=== PATIENT | male | born 1945 | race Two or more races ===

== ENCOUNTER → 2016-10-31 | Outpatient (CLI) | payer MEDICARE ==
[~2016-10-31] MED LIST: APIX5TAB PO; ASPI81CH43 PO; DONETAB5 PO; GAB300C PO; KEP500T PO; LEV250T PO; LISI-646 PO; METO50TA7 PO; NIFE30TA76 PO
[2016-10-31 13:03] LABS: Basophils # (auto) 0.1 uL; Basophils % (auto) 0.7 % (0.0-2.0); Eosinophils # (auto) 0.3 uL; Hematocrit 42.6 % (41.0-53.0); Hemoglobin 13.7 g/dL (13.5-17.5); Lymphocytes # (auto) 2.3 uL; Lymphocytes % (auto) 25.3 % (10.0-50.0); Mean Corpuscular Hemoglobin 29.1 pg (28.0-32.0); Mean Corpuscular Hgb Conc. 32.2 g/dL (32.0-36.0); Mean Corpuscular Volume 90.2 fL (80.0-100.0); Mean Platelet Volume 10.4 fL (7.4-10.4); Monocytes # (auto) 0.7 uL; Monocytes % (auto) 7.5 % (0.0-12.0); Neutrophils # (auto) 5.7 uL; Neutrophils % (auto) 63.5 % (37.0-80.0); Platelet Count (auto) 397 10^3/uL (140-450); Red Cell Distribution Width 14.5 % (11.6-16.0)
[2016-10-31 14:53] LABS: Albumin 3.9 g/dL (3.4-5.0); BUN/Creatinine Ratio 8.9; Bilirubin, Total 0.6 mg/dL (0.2-1.0); Calcium 8.9 mg/dL (8.5-10.1); Total Protein 8.8 g/dL (6.4-8.2)
[2016-10-31 15:17] LABS: Potassium 2.4 mmol/L (3.5-5.1)
[2016-10-31 15:28] LABS: Cholesterol 173 mg/dL (<200); HDL Cholesterol 44 mg/dL (40-59); LDL Cholesterol 112 mg/dL (<100); Triglycerides 170 mg/dL (<150)
== END | disposition home or self-care (01) ==
LOC: LAB 11:21
PROVIDERS: ATTEND Family Medicine
DX: R56.9 Unspecified convulsions (principal); I10 Essential (primary) hypertension; Z86.73 Personal history of transient ischemic attack (TIA), and cerebral infarction without residual deficits
CPT/HCPCS: 36415; 80053; 80061; 83036; 84153; 84154; 84443; 85025

== ENCOUNTER → 2016-11-08 | Outpatient (CLI) | payer MEDICARE | END | disposition home or self-care (01) | LOC: LAB 11:17 | PROVIDERS: ATTEND Family Medicine | DX: E87.5 Hyperkalemia (principal) | CPT/HCPCS: 36415; 84132 ==

== ENCOUNTER → 2017-08-28 | Outpatient (CLI) | payer MEDICARE, OTHER ==
[~2017-08-28] MED LIST changes: -ASPI81CH43 PO; -GAB300C PO; +GABA-497 PO; -LEV250T PO; +PANT40T PO; +POTA10TA51 PO
[2017-08-28 12:41] LABS: BUN/Creatinine Ratio 12.1; Calcium 8.9 mg/dL (8.5-10.1)
[2017-08-28 13:12] LABS: Potassium 2.8 mmol/L (3.5-5.1)
== END | disposition home or self-care (01) ==
LOC: LAB 12:01
PROVIDERS: ATTEND Family Medicine
DX: E87.6 Hypokalemia (principal)
CPT/HCPCS: 36415; 80048

== ENCOUNTER → 2017-11-06 | Outpatient (CLI) | payer MEDICARE, MEDICAID ==
[~2017-11-06] VITALS: Ht 149.9 cm; Wt 49.9 kg
[~2017-11-06] MED LIST changes: +ADENOSINE 42 MG in GIVE UN-DILUTED 0 ML IV STA; +DOBUTamine 1000MCG/ML 100 ML IV ONE; +DOBUTamine 1000MCG/ML 250 ML IV ONE; -GABA-497 PO; +GABA300C11 PO
[2017-11-06 11:46] VITALS: BP 145/76
== END | disposition home or self-care (01) ==
LOC: XY 09:25
PROVIDERS: ATTEND Internal Medicine
DX: I08.1 Rheumatic disorders of both mitral and tricuspid valves (principal); I10 Essential (primary) hypertension; I48.91 Unspecified atrial fibrillation; Z86.73 Personal history of transient ischemic attack (TIA), and cerebral infarction without residual deficits; G45.9 Transient cerebral ischemic attack, unspecified
CPT/HCPCS: 93017; 93306; 93886; J0153; J1250

== ENCOUNTER 2018-01-19 12:53 | Inpatient (IN) | payer MEDICARE, MEDICAID ==
[~2018-01-19] VITALS: Ht 167.6 cm; Wt 57.6 kg
[~2018-01-19 12:53] MED LIST changes: -ADENOSINE 42 MG in GIVE UN-DILUTED 0 ML IV STA; -DOBUTamine 1000MCG/ML 100 ML IV ONE; -DOBUTamine 1000MCG/ML 250 ML IV ONE
[2018-01-19] MEDS ORDERED: SODIUM CHLORIDE 0.9% 1,000 ML IV ONE (13:09)
[2018-01-19] MEDS ORDERED: LORazepam 2MG/ML-1ML VIAL IV ONE (13:15)
[2018-01-19 14:13] LABS: Basophils # (auto) 0.2 uL; Basophils % (auto) 0.8 % (0.0-2.0); Eosinophils # (auto) 0 uL; Eosinophils % (auto) 0.2 % (0.0-7.0); Hematocrit 38.8 % (41.0-53.0); Hemoglobin 12.7 g/dL (13.5-17.5); Lymphocytes # (auto) 1.5 uL; Lymphocytes % (auto) 7.7 % (10.0-50.0); Mean Corpuscular Hemoglobin 29.8 pg (28.0-32.0); Mean Corpuscular Hgb Conc. 32.9 g/dL (32.0-36.0); Mean Corpuscular Volume 90.5 fL (80.0-100.0); Monocytes # (auto) 0.9 uL; Monocytes % (auto) 4.7 % (0.0-12.0); Neutrophils # (auto) 16.5 uL; Neutrophils % (auto) 86.6 % (37.0-80.0); Platelet Count (auto) 337 10^3/uL (140-450); Red Blood Cells 4.28 10^6/uL (4.5-5.90); Red Cell Distribution Width 13.7 % (11.8-14.3); White Blood Cell 19.1 10^3/uL (4.4-10.8)
[2018-01-19 14:24] LABS: INR 1.05 (0.9-1.15); Partial Thromboplastin Time 26.6 sec (22.64-33.71); Prothrombin Time 11.4 sec (9.37-12.3)
[2018-01-19 14:27] LABS: Albumin 3.6 g/dL (3.4-5.0); Anion Gap 10 (5-15); BUN/Creatinine Ratio 12.3; Blood Urea Nitrogen 16 mg/dL (7-18); Calcium 8.4 mg/dL (8.5-10.1); Carbon Dioxide 23 mmol/L (21-32); Chloride 108 mmol/L (98-107); GFR African American 70 mL/min; GFR Non-African American 58 mL/min; Glucose 140 mg/dL (74-106); Potassium 3.3 mmol/L (3.5-5.1); Sodium 141 mmol/L (136-145)
[2018-01-19 14:35] LABS: Alanine Aminotransferase 17 U/L (16-61); Alkaline Phosphatase 125 U/L (45-117); Aspartate Aminotransferase 14 U/L (15-37); Bilirubin, Total 0.4 mg/dL (0.2-1.0); Total Protein 8.5 g/dL (6.4-8.2)
[2018-01-19] MEDS ORDERED: PROMETHAZINE HCL 25 MG/ML 1ML IV PRN (14:45)
[2018-01-19] MEDS ORDERED: LORazepam 0.5 MG TAB PO PRN (14:45)
[2018-01-19] MEDS ORDERED: DEXTROSE (50%) 50ML SYRG IV PRN (14:45)
[2018-01-19] MEDS ORDERED: MORPHINE SULFATE 4 MG/ML SYR/VIAL IV PRN ×2 (14:45)
[2018-01-19] MEDS ORDERED: HYDROcodone-ACET 5/325MG TAB PO PRN (14:45)
[2018-01-19] MEDS ORDERED: ACETAMINOPHEN 500 MG TAB PO PRN (14:45)
[2018-01-19] MEDS ORDERED: LORazepam 2MG/ML-1ML VIAL IV PRN (14:45)
[2018-01-19] MEDS ORDERED: LABETALOL HCL 5 MG/ML ML 20ML VIAL IV PRN (14:45)
[2018-01-19] MEDS ORDERED: NITROGLYCERIN 0.4 MG SL TAB SL PRN (14:45)
[2018-01-19] MEDS ORDERED: ALBUTEROL SULF 2.5 MG/0.5ML(0.5%) NEB SOLN NEB PRN (14:45)
[2018-01-19] MEDS ORDERED: LACTULOSE 20Gm/30ML SOLN PO PRN ×2 (14:45)
[2018-01-19] MEDS ORDERED: TEMAZEPAM 15 MG CAP PO PRN (14:45)
[2018-01-19] MEDS ORDERED: POTASSIUM CHL 10 Meq TABLET PO SCH (15:00)
[2018-01-19] MEDS ORDERED: ASPirin 81 mg TAB PO ONE (15:15)
[2018-01-19 15:20] LABS: Folate (Folic Acid) 15.93 ng/mL (5.38-24)
[2018-01-19] MEDS ORDERED: ACETAMINOPHEN 650 mg PER 20 mL UD GT PRN (15:30)
[2018-01-19] MEDS ORDERED: LACTULOSE 20Gm/30ML SOLN GT PRN (15:45)
[2018-01-19] MEDS ORDERED: HYDROcodone-ACET 5/325MG TAB GT PRN (15:45)
[2018-01-19] MEDS ORDERED: LORazepam 0.5 MG TAB GT PRN (15:45)
[2018-01-19] MEDS ORDERED: TEMAZEPAM 15 MG CAP GT PRN (16:00)
[2018-01-19] MEDS: SODIUM CHLORIDE 0.9% 1,000 ML IV SCH (16:25)
[2018-01-19] MEDS: POTASSIUM CHL 10% (20 MEQ/15ML) 15ml ORAL SOLN GT SCH (16:25)
[2018-01-19] MEDS: cefTRIAXone 1GM/10ml IVPUSH 10 ML IV SCH (16:25)
[2018-01-19] MEDS: AZITHROMYCIN 500MG/ 250ML 250 ML IV SCH (16:25)
[2018-01-19] MEDS ORDERED: LEVETIRACETAM INJ 1,000 MG in D5W 5% 100 ML IV ONE (18:45)
[2018-01-19] MEDS: ACCU-CHEK COMFORT CURVE STRIP VI SCH (18:57)
[2018-01-19 20:45] VITALS: BP 154/81
[2018-01-19 21:00] VITALS: BP 150/84
[2018-01-19 22:00] VITALS: BP_SYST 150; BP_SYST 98; BP_DIAS 60; BP_DIAS 84
[2018-01-19] MEDS ORDERED: APIXABAN 5 MG TAB GT SCH (22:00)
[2018-01-19] MEDS: GABAPENTIN 300 MG CAP GT SCH (22:47)
[2018-01-19] MEDS: LEVETIRACETAM 500 MG/5ML ORAL SOLN UD GT SCH (22:48)
[2018-01-19] MEDS: METOPROLOL TARTRATE 25 MG TAB GT SCH (22:48)
[2018-01-19] MEDS: ATORVASTATIN 20 MG TAB GT SCH (22:49)
[2018-01-19] MEDS: DONEPEZIL HYDROCHLORIDE 5 MG TAB GT SCH (22:49)
[2018-01-19] MEDS: OMEPRAZOLE 20MG/10ML ORAL SUSP GT SCH (23:56)
[2018-01-20] VITALS (7 sets, daily range): BP systolic 141–161; BP diastolic 70–91
[2018-01-20] MEDS: ACCU-CHEK COMFORT CURVE STRIP VI SCH ×4 (00:25→17:33)
[2018-01-20] MEDS: SODIUM CHLORIDE 0.9% 1,000 ML IV SCH (06:58)
[2018-01-20 07:02] LABS: Basophils # (auto) 0 uL; Basophils % (auto) 0.2 % (0.0-2.0); Eosinophils # (auto) 0 uL; Eosinophils % (auto) 0.4 % (0.0-7.0); Hematocrit 36.5 % (41.0-53.0); Hemoglobin 12.5 g/dL (13.5-17.5); Lymphocytes # (auto) 1.6 uL; Lymphocytes % (auto) 12.3 % (10.0-50.0); Mean Corpuscular Hemoglobin 31.1 pg (28.0-32.0); Mean Corpuscular Hgb Conc. 34.1 g/dL (32.0-36.0); Mean Corpuscular Volume 91.2 fL (80.0-100.0); Monocytes # (auto) 1.3 uL; Monocytes % (auto) 9.7 % (0.0-12.0); Neutrophils % (auto) 77.4 % (37.0-80.0); Nucleated Red Blood Cells % 0.1 %; Platelet Count (auto) 309 10^3/uL (140-450); Red Blood Cells 4.01 10^6/uL (4.5-5.90); Red Cell Distribution Width 13.9 % (11.8-14.3); White Blood Cell 12.9 10^3/uL (4.4-10.8)
[2018-01-20 07:23] LABS: Albumin 3.4 g/dL (3.4-5.0); BUN/Creatinine Ratio 10.7; Bilirubin, Total 0.5 mg/dL (0.2-1.0); Calcium 8.4 mg/dL (8.5-10.1)
[2018-01-20] MEDS ORDERED: PATIENTS OWN MEDICATION (Potassium Chloride (Potassium Chloride Cr) 1 TAB) PO SCH (10:00)
[2018-01-20] MEDS ORDERED: ASPirin 81 mg TAB PO SCH (10:00)
[2018-01-20] MEDS ORDERED: DONEPEZIL HYDROCHLORIDE PO SCH (10:00)
[2018-01-20] MEDS ORDERED: ENOXAPARIN SOD 60 MG/0.6 ML SYRINGE SC SCH (10:00)
[2018-01-20] MEDS ORDERED: NIFEdipine ER 30 MG TAB PO SCH (10:00)
[2018-01-20] MEDS: AZITHROMYCIN 500MG/ 250ML 250 ML IV SCH (10:17)
[2018-01-20] MEDS: amLODIPine BESYLATE 5 MG TAB GT SCH (10:18)
[2018-01-20] MEDS: cefTRIAXone 1GM/10ml IVPUSH 10 ML IV SCH (10:18)
[2018-01-20] MEDS: METOPROLOL TARTRATE 25 MG TAB GT SCH ×3 (10:19→21:29)
[2018-01-20] MEDS: POTASSIUM CHL 10% (20 MEQ/15ML) 15ml ORAL SOLN GT SCH (10:19)
[2018-01-20] MEDS: GABAPENTIN 300 MG CAP GT SCH ×2 (10:19→21:28)
[2018-01-20] MEDS: LISINOPRIL 20 MG TAB GT SCH (10:20)
[2018-01-20] MEDS: LEVETIRACETAM 500 MG/5ML ORAL SOLN UD GT SCH ×2 (11:05→21:29)
[2018-01-20] MEDS: OMEPRAZOLE 20MG/10ML ORAL SUSP GT SCH ×2 (11:06→21:29)
[2018-01-20] MEDS ORDERED: POTASSIUM CHL 10% (20 MEQ/15ML) 15ml ORAL SOLN PO ONE (12:45)
[2018-01-20] MEDS: CLINDAMYCIN 600MG IV 50 ML IV SCH ×3 (14:00→21:29)
[2018-01-20] MEDS: ASPirin-EC 81 mg tab PO SCH (17:33)
[2018-01-20] MEDS: DONEPEZIL HYDROCHLORIDE 5 MG TAB GT SCH (21:28)
[2018-01-20] MEDS: ATORVASTATIN 20 MG TAB GT SCH (21:28)
[2018-01-21] VITALS: BP 148/73
[2018-01-21] MEDS: ACCU-CHEK COMFORT CURVE STRIP VI SCH ×4 (00:44→18:29)
[2018-01-21] MEDS: SODIUM CHLORIDE 0.9% 1,000 ML IV SCH ×3 (05:08→18:26)
[2018-01-21] MEDS: CLINDAMYCIN 600MG IV 50 ML IV SCH ×3 (05:40→22:30)
[2018-01-21 05:56] LABS: Albumin 3.1 g/dL (3.4-5.0); BUN/Creatinine Ratio 8.5; Basophils # (auto) 0.1 uL; Basophils % (auto) 0.7 % (0.0-2.0); Calcium 8.1 mg/dL (8.5-10.1); Eosinophils # (auto) 0.1 uL; Eosinophils % (auto) 0.4 % (0.0-7.0); Hematocrit 36.8 % (41.0-53.0); Hemoglobin 12.3 g/dL (13.5-17.5); Lymphocytes # (auto) 2.3 uL; Lymphocytes % (auto) 17.2 % (10.0-50.0); Mean Corpuscular Hemoglobin 30.4 pg (28.0-32.0); Mean Corpuscular Hgb Conc. 33.3 g/dL (32.0-36.0); Mean Corpuscular Volume 91.1 fL (80.0-100.0); Monocytes % (auto) 14.8 % (0.0-12.0); Neutrophils # (auto) 8.9 uL; Neutrophils % (auto) 66.9 % (37.0-80.0); Platelet Count (auto) 302 10^3/uL (140-450); Potassium 3.2 mmol/L (3.5-5.1); Red Blood Cells 4.04 10^6/uL (4.5-5.90); Red Cell Distribution Width 13.6 % (11.8-14.3); White Blood Cell 13.2 10^3/uL (4.4-10.8)
[2018-01-21 06:03] LABS: Bilirubin, Total 0.6 mg/dL (0.2-1.0)
[2018-01-21] MEDS ORDERED: AMIODARONE HCL 200 MG TAB ONE (07:40)
[2018-01-21] MEDS ORDERED: AMIODARONE HCL 200 MG TAB PO ONE (07:45)
[2018-01-21 07:57] VITALS: BP 137/79
[2018-01-21] MEDS ORDERED: POTASSIUM CHL 10% (20 MEQ/15ML) 15ml ORAL SOLN GT ONE (08:15)
[2018-01-21] MEDS: POTASSIUM CHL 10% (20 MEQ/15ML) 15ml ORAL SOLN GT SCH ×2 (08:33→18:28)
[2018-01-21] MEDS: AZITHROMYCIN 500MG/ 250ML 250 ML IV SCH (10:19)
[2018-01-21] MEDS: LEVETIRACETAM 500 MG/5ML ORAL SOLN UD GT SCH ×2 (10:19→22:30)
[2018-01-21] MEDS: GABAPENTIN 300 MG CAP GT SCH ×2 (10:19→22:30)
[2018-01-21] MEDS: cefTRIAXone 1GM/10ml IVPUSH 10 ML IV SCH (10:19)
[2018-01-21] MEDS: ASPirin-EC 81 mg tab PO SCH (10:20)
[2018-01-21] MEDS: METOPROLOL TARTRATE 25 MG TAB GT SCH ×2 (10:20→22:30)
[2018-01-21] MEDS: amLODIPine BESYLATE 5 MG TAB GT SCH (10:21)
[2018-01-21] MEDS: LISINOPRIL 20 MG TAB GT SCH (10:21)
[2018-01-21 11:50] VITALS: BP 122/76
[2018-01-21] MEDS ORDERED: LIDOCAINE 2% (LOCAL ANESTH.) PF 5ml SDV IJ ONE (13:00)
[2018-01-21] MEDS: AMIODARONE HCL 200 MG TAB PO SCH ×2 (15:16→22:30)
[2018-01-21 15:50] VITALS: BP 134/69
[2018-01-21] MEDS: OMEPRAZOLE 20MG/10ML ORAL SUSP GT SCH ×2 (18:23→22:30)
[2018-01-21 19:50] VITALS: BP 136/74
[2018-01-21] MEDS: DONEPEZIL HYDROCHLORIDE 5 MG TAB GT SCH (22:30)
[2018-01-21] MEDS: ATORVASTATIN 20 MG TAB GT SCH (22:30)
[2018-01-21 23:45] VITALS: BP 136/71
[2018-01-22] MEDS: ACCU-CHEK COMFORT CURVE STRIP VI SCH ×4 (00:15→18:03)
[2018-01-22 03:50] VITALS: BP 126/64
[2018-01-22 05:43] LABS: Basophils # (auto) 0.1 uL; Eosinophils # (auto) 0 uL; Eosinophils % (auto) 0.3 % (0.0-7.0); Hematocrit 33.2 % (41.0-53.0); Lymphocytes # (auto) 1.3 uL; Lymphocytes % (auto) 9.2 % (10.0-50.0); Mean Corpuscular Hemoglobin 30.3 pg (28.0-32.0); Mean Corpuscular Hgb Conc. 33.2 g/dL (32.0-36.0); Mean Corpuscular Volume 91.5 fL (80.0-100.0); Monocytes # (auto) 1.7 uL; Monocytes % (auto) 12.5 % (0.0-12.0); Neutrophils # (auto) 10.6 uL; Nucleated Red Blood Cells % 0.1 %; Platelet Count (auto) 263 10^3/uL (140-450); Red Blood Cells 3.64 10^6/uL (4.5-5.90); Red Cell Distribution Width 13.6 % (11.8-14.3); White Blood Cell 13.8 10^3/uL (4.4-10.8)
[2018-01-22] MEDS: CLINDAMYCIN 600MG IV 50 ML IV SCH ×3 (06:15→22:00)
[2018-01-22 06:17] LABS: Albumin 3.1 g/dL (3.4-5.0); BUN/Creatinine Ratio 9.8; Bilirubin, Total 0.5 mg/dL (0.2-1.0); Calcium 8.2 mg/dL (8.5-10.1); Potassium 3.3 mmol/L (3.5-5.1); Total Protein 7.6 g/dL (6.4-8.2)
[2018-01-22] MEDS: AMIODARONE HCL 200 MG TAB PO SCH ×3 (06:20→22:00)
[2018-01-22 07:55] VITALS: BP 152/77
[2018-01-22] MEDS ORDERED: POTASSIUM CHL 10% (20 MEQ/15ML) 15ml ORAL SOLN PO ONE (09:30)
[2018-01-22] MEDS: LISINOPRIL 20 MG TAB GT SCH (10:00)
[2018-01-22] MEDS: ASPirin-EC 81 mg tab PO SCH (10:00)
[2018-01-22] MEDS: POTASSIUM CHL 10% (20 MEQ/15ML) 15ml ORAL SOLN GT SCH (10:00)
[2018-01-22] MEDS: OMEPRAZOLE 20MG/10ML ORAL SUSP GT SCH ×2 (10:00→22:00)
[2018-01-22] MEDS: GABAPENTIN 300 MG CAP GT SCH ×2 (10:00→22:00)
[2018-01-22] MEDS: LEVETIRACETAM 500 MG/5ML ORAL SOLN UD GT SCH ×2 (10:00→22:00)
[2018-01-22] MEDS: AZITHROMYCIN 500MG/ 250ML 250 ML IV SCH (11:30)
[2018-01-22] MEDS: cefTRIAXone 1GM/10ml IVPUSH 10 ML IV SCH (11:30)
[2018-01-22] MEDS: SODIUM CHLORIDE 0.9% 1,000 ML IV SCH (11:38)
[2018-01-22 12:00] VITALS: BP 154/72
[2018-01-22] MEDS: METOPROLOL TARTRATE 25 MG TAB GT SCH ×3 (12:27→23:00)
[2018-01-22] MEDS: amLODIPine BESYLATE 5 MG TAB GT SCH (12:27)
[2018-01-22 16:00] VITALS: BP 143/78
[2018-01-22 19:54] VITALS: BP 158/81
[2018-01-22] MEDS: DONEPEZIL HYDROCHLORIDE 5 MG TAB GT SCH (22:00)
[2018-01-22] MEDS: ATORVASTATIN 20 MG TAB GT SCH (22:00)
[2018-01-22 23:16] VITALS: BP 155/94
== END 2018-01-23 00:05 | disposition short-term general hospital (02) | DRG 871 ==
LOC: EDBD 12:53 → ER 12:53 → TELE 12:54 → TELE-WESTW 20:46 → DOU IN ICU 01-20 19:38
PROVIDERS: ADMIT Internal Medicine; ATTEND Family Medicine
DX: A41.9 Sepsis, unspecified organism (principal); J69.0 Pneumonitis due to inhalation of food and vomit; I63.033 Cerebral infarction due to thrombosis of bilateral carotid arteries; G40.201 Localization-related (focal) (partial) symptomatic epilepsy and epileptic syndromes with complex partial seizures, not intractable, with status epilepticus; G93.41 Metabolic encephalopathy; I48.91 Unspecified atrial fibrillation; G62.9 Polyneuropathy, unspecified; G40.401 Other generalized epilepsy and epileptic syndromes, not intractable, with status epilepticus; G81.94 Hemiplegia, unspecified affecting left nondominant side; D64.9 Anemia, unspecified; E78.00 Pure hypercholesterolemia, unspecified; K59.00 Constipation, unspecified; K80.20 Calculus of gallbladder without cholecystitis without obstruction; N28.89 Other specified disorders of kidney and ureter; E87.6 Hypokalemia; F03.90 Unspecified dementia, unspecified severity, without behavioral disturbance, psychotic disturbance, mood disturbance, and anxiety; I11.9 Hypertensive heart disease without heart failure; N40.0 Benign prostatic hyperplasia without lower urinary tract symptoms; I25.10 Atherosclerotic heart disease of native coronary artery without angina pectoris; I25.2 Old myocardial infarction; Z79.01 Long term (current) use of anticoagulants; Z79.82 Long term (current) use of aspirin; Z79.899 Other long term (current) drug therapy; Z82.3 Family history of stroke; Z82.49 Family history of ischemic heart disease and other diseases of the circulatory system; Z83.3 Family history of diabetes mellitus
CPT/HCPCS: 36415; 70450; 70551; 71045; 80053; 80061; 82550; 82607; 82746; 82962; 83036; 83880; 84443; 84484; 85025; 85610; 85652; 85730; 87040; 87081; 87493; 93005; 93886; 95819; 96361; 96365; 96367; 96375; 99291; J3490; J7060